=== PATIENT | female | born 1990 | race Caucasian/White ===

== ENCOUNTER 2024-06-15 17:18 | Emergency (ER) | payer BC, SELFPAY ==
[2024-06-15] VITALS (11 sets, daily range): BP systolic 135–197; BP diastolic 83–118; PULSE 61–78; RESP 13–21; TEMP 36.6–36.7; O2SAT 97–100; BMI 25.0
--- NOTE | 2024-06-15 17:20 | ECG_ITS ---
APPROVED REPORT Exam: Resting ECG HR:73 bpm ECG Measurements Heart Rate 73 AXES HI 147 P 9 QRSd 97 QRS 50 QT 385 T 27 QTc 410 Conclusion SINUS RHYTHM INCOMPLETE RIGHT BUNDLE BRANCH BLOCK [90+ ms QRS DURATION, TERMINAL R IN V1/V2, 40+ ms S IN I/aVL/V4/V5/V6] BORDERLINE ECG Electronically signed by : SHERMAN DE LA GARZA, 06/15/2024 22:42:38
--- NOTE | 2024-06-15 17:24 | [facility].EDCP ---
Discharge Plan Disposition Patient Disposition: Home, Self-Care Condition: Good Prescriptions Prescriptions: New prednisone 50 mg tablet 50 mg PO DAILY 5 Days Qty: 5 0RF No Action budesonide-formoterol [Breyna] 160-4.5 mcg/actuation HFA aerosol inhaler inhalation Patient Comments: INHALE 2 PUFFS TWICE A DAY DIRECTED. Slynd 4 mg (28) tablet 4 mg PO DAILY prazosin 2 mg capsule 2 mg PO HS Vraylar 1.5 mg capsule 1.5 mg PO DAILY sertraline 100 mg tablet 100 mg PO DAILY Airsupra 90-80 mcg/actuation HFA aerosol inhaler 2 inh inhalation TID Patient Comments: INHALE 2 PUFFS EVERY 6 HOURS NEEDED azithromycin 250 mg tablet See Rx Instructions PO .COMPLEX Qty: 6 0RF Rx Instructions: For 250 mg dose pack: take 500 mg today (day 1), then 250 mg for 4 days (days 2-5) PO Referrals Follow up/Referrals: Provider,MD Svitlana [Primary Care Provider] - See instructions Giovanni Glover MD [Staff Physician] - See instructions Activity Restrictions/Add. Instructions Additional Instructions/Restrictions: Please follow-up with your PCP within 48 hours for recheck of your symptoms and recheck of your blood pressure. Also referred you to cardiology for further workup please call in the morning to make your appointment. If you have continued new or worsening signs or symptoms follow-up with your PCP sooner or return to the ER as needed. Clinical Impressions Clinical Impression: Chest pain Qualifiers: Chest pain type: unspecified Qualified Code(s): R07.9 - Chest pain, unspecified Print Language Print Language: Montenegrin Discharge ED Provider: Starla Ventura HPI <VANITA Monroy - Last Filed: 06/15/24 22:06> General Chief Complaint: Chest Pain Stated Complaint: Chest Pain Time Seen by Provider: 06/15/24 17:24 History of Present Illness HPI narrative: Patient presents for evaluation of chest pain. Patient gives a history of 2 weeks of midsternal chest pain. Patient states that the pain is worse when she sitting up and taking a breath. It is better when she is lying down. She does not have a cardiac history. She was diagnosed with influenza A 2 weeks ago. She denies any fevers chills hemoptysis hematochezia melena nausea vomiting diarrhea. Related Data Home Medications ?Medication ?Instructions ?Recorded ?Confirmed albuterol 90 mcg-budesonide 80 2 inh inhalation TID 06/01/24 06/01/24 mcg/actuation HFA aerosol inhaler (Airsupra) budesonide-formoterol HFA 160 inhalation 06/01/24 06/01/24 mcg-4.5 mcg/actuation aerosol inhaler (Breyna) cariprazine 1.5 mg capsule 1.5 mg PO DAILY 06/01/24 06/01/24 (Vraylar) drospirenone (contraceptive) 4 mg 4 mg PO DAILY 06/01/24 06/01/24 (28) tablet (Slynd) prazosin 2 mg capsule 2 mg PO HS 06/01/24 06/01/24 sertraline 100 mg tablet 100 mg PO DAILY 06/01/24 06/01/24 Previous Rx's ?Medication ?Instructions ?Recorded azithromycin 250 mg tablet See Rx Instructions PO .COMPLEX #6 06/01/24 tabs prednisone 50 mg tablet 50 mg PO DAILY 5 days #5 tabs 06/15/24 Allergies Allergy/AdvReac Type Severity Reaction Status Date / Time fentanyl Allergy Intermediate Verified 06/01/24 14:44 hydromorphone (From Dilaudid) Allergy Intermediate Verified 06/01/24 14:44 montelukast AdvReac Intermediate Verified 06/01/24 14:44 green dye Allergy Intermediate Uncoded 06/01/24 14:44 PFS <VANITA Monroy - Last Filed: 06/15/24 22:06> [facility] Disclaimer: The information contained in this section may have been updated after the patient was seen, as this information can be updated by other users. Medical History (Updated 06/15/24 @ 21:52 by VANITA Monroy) delivery delivered Fracture of humeral head Surgical History (Updated 06/01/24 @ 14:46 by Scarlet Schuler MA) H/O cone biopsy of cervix History of bowel resection Hx of cholecystectomy Family History (Updated 06/01/24 @ 14:47 by Scarlet Schuler MA) Other Cancer Diabetes Hypertension Social History (Updated 06/01/24 @ 14:48 by Scarlet Schuler MA) Smoking Status: Never smoker alcohol intake: current substance use type: denies use current occupational status: employed and other Travel in the last 8 weeks: Inside the [place] Have you lived/traveled outside US in past 30 days?: No Contact w/someone who lives/traveled outside US past 30 days?: No Exposure to someone with infectious disease in past 14 days?: No Do you have a fever (greater than 100.4 F or 38 C)?: No Have you tested positive for COVID-19: No Exposed to someone with COVID-19 in past 14 days?: No Do you have a sore throat?: No Do you have a cough?: No Do you have any weakness?: No Do you have any diarrhea?: No Are you experiencing any unusual bleeding?: No Do you have any muscle aches/pain?: No Do you have any abdominal pain?: No Are you experiencing loss of taste or smell?: No <VANITA Monroy - Last Filed: 06/15/24 22:06> ROS Obtained: Yes Systems reviewed as appropriate & no additional complaints except as documented Physical Exam <VANITA Monroy - Last Filed: 06/15/24 22:06> General General appearance: alert and in no apparent distress Respiratory Respiratory exam: Present normal lung sounds bilaterally Cardiovascular Cardiovascular exam: Present regular rate Neurological Exam Neurological exam: Present alert and oriented X3 HEART Score <VANITA Monroy - Last Filed: 06/15/24 22:06> HEART Score HEART Score assessment performed?: No History (anamnesis): Slightly suspicious ECG: Normal Age: <45 years Risk factors: 1-2 risk factors Troponin: </= normal limit HEART Score: 1 <Starla Ventura DO - Last Filed: 06/15/24 23:12> HEART Score HEART Score: 1 Procedures <Starla Ventura DO - Last Filed: 06/15/24 23:12> Limited Ultrasound Interpretation:: Limited cardiac ultrasound Indication: Chest pain Identified cardiac views: [-Cardiac parasternal long axis] [-Cardiac parasternal short axis] [-Cardiac apical four-chamber] Findings: [-Cardiac activity present -Gross wall motion normal -Pericardial effusion absent -Right heart strain absent] Impression: -[From above] Images were saved to permanent archive The study was technically adequate CPT: 96513 This study was performed by me, and I personally interpreted all images/videos. Based on my clinical judgement, these images were adequate and did not necessitate further imaging. Critical Care <VANITA Monroy - Last Filed: 06/15/24 22:06> Critical Care Time Critical Care Time: No Medical Decision Making <VANITA Monroy - Last Filed: 06/15/24 22:06> Medical Records Medical records reviewed: Yes I reviewed the patient's medical records. David Inquiry Pt receiving controlled substance: No Vital Signs Vital Signs: 06/15/24 17:22 06/15/24 17:48 06/15/24 18:00 Temperature 98.1 F Temperature Source Oral Pulse Rate 74 78 Pulse Rate [Left Radial] 73 Respiratory Rate 19 13 15 Blood Pressure 165/112 H 165/102 H Blood Pressure [Right Arm] 197/118 H Blood Pressure Mean [Right Arm] 144 02 Sat by Pulse Oximetry 99 98 97 Oxygen Delivery Method Room Air Room Air Room Air 06/15/24 18:30 06/15/24 19:00 06/15/24 19:30 Temperature Temperature Source Pulse Rate 66 69 66 Pulse Rate [Left Radial] Respiratory Rate 14 13 17 Blood Pressure 159/100 H 172/112 H 136/90 Blood Pressure [Right Arm] Blood Pressure Mean [Right Arm] 02 Sat by Pulse Oximetry 98 98 98 Oxygen Delivery Method Room Air Room Air Room Air 06/15/24 20:00 06/15/24 20:30 06/15/24 21:00 Temperature Temperature Source Pulse Rate 63 68 73 Pulse Rate [Left Radial] Respiratory Rate 21 13 17 Blood Pressure 135/85 154/107 H 138/83 Blood Pressure [Right Arm] Blood Pressure Mean [Right Arm] 02 Sat by Pulse Oximetry 99 100 100 Oxygen Delivery Method Room Air Room Air Room Air 06/15/24 21:30 06/15/24 22:12 Temperature 98 F Temperature Source Pulse Rate 67 61 Pulse Rate [Left Radial] Respiratory Rate 14 18 Blood Pressure 150/101 H 151/94 H Blood Pressure [Right Arm] Blood Pressure Mean [Right Arm] 02 Sat by Pulse Oximetry 98 Oxygen Delivery Method Room Air Room Air Lab Data Lab results reviewed: Yes I reviewed the patient's lab results. Labs: Lab Results 06/15/24 17:30: WBC 8.7, RBC 4.42, Hgb 13.5, Hct 39.0, MCV 88.2, MCH 30.5, MCHC 34.6, RDW 12.6, Plt Count 218, MPV 11.6 H, Neut % (Auto) 48.9, Lymph % (Auto) 33.3, Coles % (Auto) 9.2, Eos % (Auto) 8.2, Baso % (Auto) 0.2, Neut # (Auto) 4.2, Lymph # (Auto) 2.9, Coles # (Auto) 0.8, Eos # (Auto) 0.7 H, Baso # (Auto) 0.0, ESR 21 H, PT 8.9 L, INR 0.79 L, Sodium 140, Potassium 3.7, Chloride 104, Carbon Dioxide 27, Anion Gap 12.7, BUN 14, Creatinine 0.80, Estimated Creat Clear 108, Estimated GFR 81, Est GFR ( Amer) 98, Glucose 90, Calcium 9.1, Total Bilirubin 0.3, AST 37 H, ALT 59, Alkaline Phosphatase 92, Troponin I < 0.01, C-Reactive Protein 5.7 H, NT-Pro-B Natriuret Pep < 20.0, Total Protein 8.5 H, Albumin 4.9, Globulin 3.6 H, Albumin/Globulin Ratio 1.4, Procalcitonin 0.036, TSH 2.57, Free T4 Index 2.1 L, Thyroxine (T4) 6.7, T3 Uptake 32, Serum HCG, Qual Negative, HCV Ab GRAYSON w/Rflx PCR Qn Negative, HIV Ag/Ab Combo Qual Negative 06/15/24 20:15: Troponin I < 0.01 06/15/24 17:30 06/15/24 17:30 Response Orders (Tests/Meds): ED MEDICATIONS Discontinued Medications Generic Name Dose Route Start Last Admin Trade Name Freq PRN Reason Stop Dose Admin Acetaminophen 1,000 mg 06/15/24 17:28 06/15/24 17:43 Acetaminophen 1,000mg/100ml Vial IV 06/15/24 17:29 1,000 mg ONCE ONE Administration Belladonna Alkaloids 60 ml 06/15/24 17:28 06/15/24 17:43 Belladonna Alkaloids 60 Ml Ml PO 06/15/24 17:29 60 ml ONCE ONE Administration Iopamidol 70 ml 06/15/24 20:20 06/15/24 20:21 Iopamidol-370 (76%);100ml Bottle IV 06/15/24 20:21 70 ml ONCE ONE Administration Ketorolac Tromethamine 30 mg 06/15/24 21:09 06/15/24 21:14 Ketorolac 30mg/Ml Vial IV 06/15/24 21:10 30 mg ONCE ONE Administration Prednisone 40 mg 06/15/24 21:09 06/15/24 21:14 Prednisone 20mg Tab PO 06/15/24 21:10 40 mg ONCE ONE Administration Sodium Chloride 50 ml 06/15/24 20:20 06/15/24 20:21 0.9 % Sodium Chloride 50 Ml Vial IV 06/15/24 20:21 50 ml ONCE ONE Administration Sodium Chloride 10 ml 06/15/24 20:20 06/15/24 20:21 Sodium Chloride 0.9% 10ml Syr (Rad Only) IV 06/15/24 20:21 10 ml ONCE ONE Administration ORDERS Category Date Time Status CT angio chest PE protocol Stat Cat Scan 06/15/24 17:28 Completed POCUS Point of Care (ER Only) Stat Exams 06/15/24 20:15 Taken BNP [NT Pro Brain Natriuretic Pep.] Stat Lab 06/15/24 17:30 Completed CBC w/Auto Diff [Complete Blood Count Auto Diff] Stat Lab 06/15/24 17:30 Completed CMP [Comprehensive Metabolic Panel] Stat Lab 06/15/24 17:30 Completed CRP [C-Reactive Protein] Stat Lab 06/15/24 17:30 Completed ESR [Erythrocyte Sedimentation Rate] Stat Lab 06/15/24 17:30 Completed HCG Qualitative, Serum Stat Lab 06/15/24 17:30 Completed HIV Combo Stat Lab 06/15/24 17:30 Completed Hepatitis C Ab Qual. W/ RFX Stat Lab 06/15/24 17:30 Completed INR [Prothrombin Time INR] Stat Lab 06/15/24 17:30 Completed Procalcitonin Stat Lab 06/15/24 17:30 Completed Thyroid Panel Stat Lab 06/15/24 17:30 Completed Trop I [Troponin I] Stat Lab 06/15/24 17:30 Completed Troponin I Q3H Lab 06/15/24 20:15 Completed MDM Narrative Medical Decision Narrative: In summary patient is a 34-year-old female who presents to the emergency department for evaluation of chest pain. Patient is initially hypertensive at 197/118 but with a heart rate of 73 normal sinus rhythm on the bedside monitor breathing 19 times a minute satting at 99% on room air upon arrival, afebrile at 98.1. Physical exam is remarkable for normal breath sounds no reproducible pain on palpation of the anterior chest wall normal heart sounds with no murmurs gallops rubs or thrills no abdominal tenderness no rebound or guarding or rigidity.. Differential diagnosis includes ACS versus PE versus pericardial effusion versus pericarditis versus pneumonia etc. Initial workup will be conducted with hematologic labs twelve-lead EKG CTA PE protocol POCUS. Initial interventions include Tylenol GI cocktail. Initial workup reviewed by me shows her hematologic labs are remarkable for normal white count with no neutrophilic shift and INR of 0.79 CRP of 5.7 and troponin of less than 0.01 NT proBNP of less than 20 twelve-lead EKG that shows normal sinus rhythm without evidence of ACS and my informal interpretation of CT scan PE protocol does not show any evidence of thrombus or acute process prior to radiology read. POCUS was normal. Given this we have ruled out any serious acute life-threatening cause to the best of our ability given negative troponins x 2 normal EKG normal inflammatory markers normal CTA PE protocol we have essentially ruled out those things although there still remains diagnostic uncertainty as to the cause.. I did order the patient with Toradol and prednisone prior to discharge. I have recommended the patient strongly follow-up with PCP within 48 hours for not only recheck of her symptoms but also for management of her blood pressure. I recommended cardiology follow-up as well for her hypertension and substernal chest pain symptoms. <Starla Ventura, DO - Last Filed: 06/15/24 23:12> Vital Signs Vital Signs: 06/15/24 17:22 06/15/24 17:48 06/15/24 18:00 Temperature 98.1 F Temperature Source Oral Pulse Rate 74 78 Pulse Rate [Left Radial] 73 Respiratory Rate 19 13 15 Blood Pressure 165/112 H 165/102 H Blood Pressure [Right Arm] 197/118 H Blood Pressure Mean [Right Arm] 144 02 Sat by Pulse Oximetry 99 98 97 Oxygen Delivery Method Room Air Room Air Room Air 06/15/24 18:30 06/15/24 19:00 06/15/24 19:30 Temperature Temperature Source Pulse Rate 66 69 66 Pulse Rate [Left Radial] Respiratory Rate 14 13 17 Blood Pressure 159/100 H 172/112 H 136/90 Blood Pressure [Right Arm] Blood Pressure Mean [Right Arm] 02 Sat by Pulse Oximetry 98 98 98 Oxygen Delivery Method Room Air Room Air Room Air 06/15/24 20:00 06/15/24 20:30 06/15/24 21:00 Temperature Temperature Source Pulse Rate 63 68 73 Pulse Rate [Left Radial] Respiratory Rate 21 13 17 Blood Pressure 135/85 154/107 H 138/83 Blood Pressure [Right Arm] Blood Pressure Mean [Right Arm] 02 Sat by Pulse Oximetry 99 100 100 Oxygen Delivery Method Room Air Room Air Room Air 06/15/24 21:30 06/15/24 22:12 Temperature 98 F Temperature Source Pulse Rate 67 61 Pulse Rate [Left Radial] Respiratory Rate 14 18 Blood Pressure 150/101 H 151/94 H Blood Pressure [Right Arm] Blood Pressure Mean [Right Arm] 02 Sat by Pulse Oximetry 98 Oxygen Delivery Method Room Air Room Air Lab Data Labs: Lab Results 06/15/24 17:30: WBC 8.7, RBC 4.42, Hgb 13.5, Hct 39.0, MCV 88.2, MCH 30.5, MCHC 34.6, RDW 12.6, Plt Count 218, MPV 11.6 H, Neut % (Auto) 48.9, Lymph % (Auto) 33.3, Coles % (Auto) 9.2, Eos % (Auto) 8.2, Baso % (Auto) 0.2, Neut # (Auto) 4.2, Lymph # (Auto) 2.9, Coles # (Auto) 0.8, Eos # (Auto) 0.7 H, Baso # (Auto) 0.0, ESR 21 H, PT 8.9 L, INR 0.79 L, Sodium 140, Potassium 3.7, Chloride 104, Carbon Dioxide 27, Anion Gap 12.7, BUN 14, Creatinine 0.80, Estimated Creat Clear 108, Estimated GFR 81, Est GFR ( Amer) 98, Glucose 90, Calcium 9.1, Total Bilirubin 0.3, AST 37 H, ALT 59, Alkaline Phosphatase 92, Troponin I < 0.01, C-Reactive Protein 5.7 H, NT-Pro-B Natriuret Pep < 20.0, Total Protein 8.5 H, Albumin 4.9, Globulin 3.6 H, Albumin/Globulin Ratio 1.4, Procalcitonin 0.036, TSH 2.57, Free T4 Index 2.1 L, Thyroxine (T4) 6.7, T3 Uptake 32, Serum HCG, Qual Negative, HCV Ab GRAYSON w/Rflx PCR Qn Negative, HIV Ag/Ab Combo Qual Negative 06/15/24 20:15: Troponin I < 0.01 Response Orders (Tests/Meds): ED MEDICATIONS Discontinued Medications Generic Name Dose Route Start Last Admin Trade Name Freq PRN Reason Stop Dose Admin Acetaminophen 1,000 mg 06/15/24 17:28 06/15/24 17:43 Acetaminophen 1,000mg/100ml Vial IV 06/15/24 17:29 1,000 mg ONCE ONE Administration Belladonna Alkaloids 60 ml 06/15/24 17:28 06/15/24 17:43 Belladonna Alkaloids 60 Ml Ml PO 06/15/24 17:29 60 ml ONCE ONE Administration Iopamidol 70 ml 06/15/24 20:20 06/15/24 20:21 Iopamidol-370 (76%);100ml Bottle IV 06/15/24 20:21 70 ml ONCE ONE Administration Ketorolac Tromethamine 30 mg 06/15/24 21:09 06/15/24 21:14 Ketorolac 30mg/Ml Vial IV 06/15/24 21:10 30 mg ONCE ONE Administration Prednisone 40 mg 06/15/24 21:09 06/15/24 21:14 Prednisone 20mg Tab PO 06/15/24 21:10 40 mg ONCE ONE Administration Sodium Chloride 50 ml 06/15/24 20:20 06/15/24 20:21 0.9 % Sodium Chloride 50 Ml Vial IV 06/15/24 20:21 50 ml ONCE ONE Administration Sodium Chloride 10 ml 06/15/24 20:20 06/15/24 20:21 Sodium Chloride 0.9% 10ml Syr (Rad Only) IV 06/15/24 20:21 10 ml ONCE ONE Administration ORDERS Category Date Time Status CT angio chest PE protocol Stat Cat Scan 06/15/24 17:28 Completed POCUS Point of Care (ER Only) Stat Exams 06/15/24 20:15 Taken BNP [NT Pro Brain Natriuretic Pep.] Stat Lab 06/15/24 17:30 Completed CBC w/Auto Diff [Complete Blood Count Auto Diff] Stat Lab 06/15/24 17:30 Completed CMP [Comprehensive Metabolic Panel] Stat Lab 06/15/24 17:30 Completed CRP [C-Reactive Protein] Stat Lab 06/15/24 17:30 Completed ESR [Erythrocyte Sedimentation Rate] Stat Lab 06/15/24 17:30 Completed HCG Qualitative, Serum Stat Lab 06/15/24 17:30 Completed HIV Combo Stat Lab 06/15/24 17:30 Completed Hepatitis C Ab Qual. W/ RFX Stat Lab 06/15/24 17:30 Completed INR [Prothrombin Time INR] Stat Lab 06/15/24 17:30 Completed Procalcitonin Stat Lab 06/15/24 17:30 Completed Thyroid Panel Stat Lab 06/15/24 17:30 Completed Trop I [Troponin I] Stat Lab 06/15/24 17:30 Completed Troponin I Q3H Lab 06/15/24 20:15 Completed ECG Data Tracing #1: Attestation: I reviewed this ECG and interpreted as documented below: ECG Narrative: Normal sinus rhythm with a ventricular to 73 bpm. Incomplete right bundle marco block. No acute ST changes concerning for ischemia. ECG initial impression date: 06/15/24 ECG initial impression time: 17:24 MDM Narrative Medical Decision Narrative: In summary patient is a 34-year-old female who presents to the emergency department for evaluation of chest pain. Patient is initially hypertensive at 197/118 but with a heart rate of 73 normal sinus rhythm on the bedside monitor breathing 19 times a minute satting at 99% on room air upon arrival, afebrile at 98.1. Physical exam is remarkable for normal breath sounds no reproducible pain on palpation of the anterior chest wall normal heart sounds with no murmurs gallops rubs or thrills no abdominal tenderness no rebound or guarding or rigidity.. Differential diagnosis includes ACS versus PE versus pericardial effusion versus pericarditis versus pneumonia etc. Initial workup will be conducted with hematologic labs twelve-lead EKG CTA PE protocol POCUS. Initial interventions include Tylenol GI cocktail. Initial workup reviewed by me shows her hematologic labs are remarkable for normal white count with no neutrophilic shift and INR of 0.79 CRP of 5.7 and troponin of less than 0.01 NT proBNP of less than 20 twelve-lead EKG that shows normal sinus rhythm without evidence of ACS and my informal interpretation of CT scan PE protocol does not show any evidence of thrombus or acute process prior to radiology read. POCUS was normal. Given this we have ruled out any serious acute life-threatening cause to the best of our ability given negative troponins x 2 normal EKG normal inflammatory markers normal CTA PE protocol we have essentially ruled out those things although there still remains diagnostic uncertainty as to the cause.. I did order the patient with Toradol and prednisone prior to discharge. I have recommended the patient strongly follow-up with PCP within 48 hours for not only recheck of her symptoms but also for management of her blood pressure. I recommended cardiology follow-up as well for her hypertension and substernal chest pain symptoms. DO Lorenzo: I was consulted by the RIC, and we discussed the complexity of the problems being addressed. I approved the treatment and management plan for this patient's care in the emergency department, thus performing a substantive portion of the medical decision making. I performed bedside cardiac ultrasound and noted no gross wall motion abnormality, no pericardial effusion, no right heart strain. Starla Ventura DO
--- NOTE | 2024-06-15 17:28 | CT_ITS ---
PROCEDURE INFORMATION: Exam: CTA Chest With Contrast Exam date and time: 06/15/2024 8:22 PM Age: 34 years old Clinical indication: Other: Chest pain TECHNIQUE: Imaging protocol: Computed tomographic angiography of the chest with contrast. Exam focused on the arteries. 3D rendering (Not supervised by radiologist): MIP and/or 3D reconstructed images were created by the technologist. Radiation optimization: All CT scans at this facility use at least one of these dose optimization techniques: automated exposure control; mA and/or kV adjustment per patient size (includes targeted exams where dose is matched to clinical indication); or iterative reconstruction. Contrast material: ISO 370; Contrast volume: 70 ml; Contrast route: INTRAVENOUS (IV); COMPARISON: No relevant prior studies available. FINDINGS: Pulmonary arteries: Evaluation of the segmental pulmonary artery branches is limited by excessive motion artifact and cannot be evaluated for subtle acute emboli. Central pulmonary arteries are free of emboli. Aorta: Unremarkable. No aortic aneurysm. No aortic dissection. Lungs: Unremarkable. No consolidation. No masses. Pleural spaces: Unremarkable. No pneumothorax. No pleural effusion. Heart: Unremarkable. No cardiomegaly. No pericardial effusion. Lymph nodes: Unremarkable. No enlarged lymph nodes. Bones/joints: Unremarkable. No acute fracture. Soft tissues: Unremarkable. IMPRESSION: 1. Evaluation of the segmental pulmonary artery branches is limited by excessive motion artifact and cannot be evaluated for subtle acute emboli. Central pulmonary arteries are free of emboli. 2. No other acute findings.
[2024-06-15] MEDS: ACETAMINOPHEN 1,000MG/100ML VIAL 1000 MG IV (17:43)
[2024-06-15] MEDS: BELLADONNA ALKALOIDS 60 ML ML PO (17:43)
[2024-06-15 17:55] LABS: Basophils % 0.2 % (0.1-2.0); Eosinophils # 0.7 K/mm3 (0.0-0.4); Eosinophils % 8.2 % (0.1-12.0); Hemoglobin 13.5 g/dL (12.2-16.2); Lymphocytes # 2.9 K/mm3 (0.7-4.5); Lymphocytes % 33.3 % (10-50); Mean Corpuscular HGB Conc 34.6 g/dL (31.8-35.4); Mean Corpuscular Hemoglobin 30.5 pg (27.0-31.2); Mean Corpuscular Volume 88.2 fl (81-99); Mean Platelet Volume 11.6 fl (7.4-10.4); Monocytes # 0.8 K/mm3 (0.1-1.0); Monocytes % 9.2 % (1.7-9.3); Neutrophils # 4.2 K/mm3 (1.8-7.8); Neutrophils % 48.9 % (37.0-80.0); Platelet Count 218 K/mm3 (142-424); Red Blood Count 4.42 M/mm3 (4.20-5.40); Red Cell Distribution Width 12.6 % (11.5-17.5); White Blood Count 8.7 K/mm3 (4.8-10.8)
[2024-06-15 17:59] LABS: Albumin Level 4.9 g/dl (3.5-5.0); Chloride 104 mmol/L (98-107); Potassium 3.7 mmoL/L (3.5-5.1); Sodium 140 mmol/L (136-145)
[2024-06-15 18:01] LABS: Blood Urea Nitrogen 14 mg/dl (7-17); Creatinine Clearance Estimated 108 mL/min (50-200); Estimated Glomerular Filt Rate 81 ml/min (>60); GFR (African American) 98 ML/MIN (>60); INR 0.79 (0.9-1.1); Prothrombin Time 8.9 seconds (9.2-12.1)
[2024-06-15 18:02] LABS: Alanine Aminotransferase 59 U/L (12-78); Albumin/Globulin Ratio 1.4 (1.1-1.8); Alkaline Phosphatase 92 U/L (38-126); Anion Gap 12.7 mEq/L (5-15); Aspartate Amino Transferase 37 U/L (14-36); Bilirubin,Total 0.3 mg/dl (0.2-1.3); Calcium 9.1 mg/dl (8.4-10.2); Carbon Dioxide 27 mmol/L (22.0-30.0); Globulin 3.6 g/dL (1.3-3.2); Glucose 90 mg/dl (74-100); Total Protein,Serum 8.5 g/dl (6.3-8.2)
[2024-06-15 18:12] LABS: NT Pro Brain Natriuretic Pep. < 20.0 pg/mL (0-125)
[2024-06-15 18:14] LABS: Troponin I < 0.01 ng/ml (0.00-0.034)
[2024-06-15 18:22] LABS: Triiodothryronine (T3) Uptake 32 % (23.5-40.5)
[2024-06-15 18:23] LABS: Free Thyroxine Index 2.1 ug/dL (5.93-13.13); T4 (Thyroxine) 6.7 ug/dl (5.53-11.0)
[2024-06-15 18:34] LABS: Procalcitonin 0.036 ng/mL (0.0-2.0)
[2024-06-15 18:37] LABS: Thyroid Stimulating Hormone 2.57 uIU/mL (0.465-4.68)
[2024-06-15 19:34] LABS: HIV Combo NEGATIVE (Negative)
[2024-06-15 19:40] LABS: Hepatitis C Ab Qual. W/ RFX NEGATIVE (Negative)
[2024-06-15 19:48] LABS: HCG Qualitative, Serum Negative (Negative)
[2024-06-15] MEDS: IOPAMIDOL-370 (76%);100ML BOTTLE 70 ML IV (20:21)
[2024-06-15] MEDS: 0.9 % SODIUM CHLORIDE 50 ML VIAL IV (20:21)
[2024-06-15] MEDS: SODIUM CHLORIDE 0.9% 10ML SYR (RAD ONLY) 10 ML IV (20:21)
[2024-06-15 20:43] LABS: C-Reactive Protein 5.7 mg/L (0-4)
[2024-06-15 21:10] LABS: Troponin I < 0.01 ng/ml (0.00-0.034)
[2024-06-15] MEDS: predniSONE 20MG TAB 40 MG PO (21:14)
[2024-06-15] MEDS: KETOROLAC 30MG/ML VIAL 30 MG IV (21:14)
[2024-06-15 22:03] LABS: Erythrocyte Sedimentation Rate 21 mm/hr (0-20)
== END 2024-06-15 22:13 | disposition home or self-care (01) ==
PROVIDERS: Physician Assistant; Emergency Provider Emergency Medicine
DX: R07.9 Chest pain, unspecified (principal)
CPT/HCPCS: 71275; 80053; 83880; 84145; 84436; 84443; 84479; 84484; 84703; 85025; 85610; 85651; 86140; 86803; 87389; 93005; 96374; 96375; 99285; J0131; J1885; Q9967